=== PATIENT | female | born 1940 | race Hispanic/Latino ===

== ENCOUNTER 2018-07-04 05:46 | Day surgery (SDC) | payer MEDICARE, OTHER ==
[2018-07-02 12:26] LABS: BASOPHILS % (AUTO) 0.5 % (0.0-5.0); EOSINOPHILS % (AUTO) 1.3 % (0.0-8.0); HEMATOCRIT 41.2 % (36-48); LYMPHOCYTES % (AUTO) 28.9 % (21.0-51.0); MEAN CORPUSCULAR HEMOGLOBIN 31.2 pg (27.0-33.0); MEAN CORPUSCULAR HGB CONC 33.7 g/dL (32.0-36.0); MEAN CORPUSCULAR VOLUME 92.6 fL (79-99); NEUTROPHILS % (AUTO) 59.3 % (40.0-77.0); PLATELET COUNT (AUTO) 289 K/uL (130-400); RED BLOOD CELL COUNT(AUTO) 4.45 MIL/uL (4.00-5.50); RED CELL DISTRIBUTION WIDTH 13.8 % (11.0-15.5); WHITE BLOOD COUNT (AUTO) 6.1 K/uL (4.8-10.8)
[2018-07-02 12:31] VITALS: BP 138/71
[2018-07-02 12:42] LABS: CREATININE 1.5 mg/dL (0.5-1.5); POTASSIUM 4.3 mmol/L (3.5-5.1)
[2018-07-02 12:47] LABS: INR 0.97 (0.85-1.15); PARTIAL THROMBOPLASTIN TIME 28.4 SEC (26.3-35.5); PROTHROMBIN TIME 10.2 SEC (9.6-11.6)
[2018-07-04] VITALS (9 sets, daily range): BP systolic 109–126; BP diastolic 56–74
[~2018-07-04] VITALS: Ht 167.6 cm; Wt 79.9 kg
[~2018-07-04 05:46] MED LIST: CALC-190 PO; CEFAZOLIN SODIUM 1 GM VIAL IVP SCH; LISI2.5T2 PO; MEMA10TA20 PO; SODIUM CHLORIDE 0.9% 1000ML 1,000 ML IV SCH
[2018-07-04] MEDS ORDERED: LIDOCAINE HCL 1% MDV 50ML VIAL ONE (07:23)
[2018-07-04] MEDS ORDERED: BUPIVACAINE/PF 0.25% 30ML VIAL IJ ONE (07:25)
[2018-07-04] MEDS ORDERED: CEFAZOLIN SODIUM 1 GM VIAL ONE (07:25)
[2018-07-04] MEDS ORDERED: MEPERIDINE-PF 25 MG/ML SYG ONE ×3 (08:14→08:42)
[2018-07-04] MEDS ORDERED: MIDAZOLAM HCL 1 MG/ML 2ML VIAL ONE ×3 (08:14→08:42)
[2018-07-04] MEDS ORDERED: ACETAMINOPHEN 325 MG TAB PO PRN (09:30)
[2018-07-04] MEDS ORDERED: ACETAMINOPHEN-CODEINE 300/30MG TAB PO PRN (09:30)
== END 2018-07-04 12:57 | disposition home or self-care (01) ==
LOC: DAH 05:46
PROVIDERS: ATTEND Internal Medicine Cardiovascular Disease
DX: Z45.2 Encounter for adjustment and management of vascular access device (principal); I10 Essential (primary) hypertension; I42.9 Cardiomyopathy, unspecified; F03.90 Unspecified dementia, unspecified severity, without behavioral disturbance, psychotic disturbance, mood disturbance, and anxiety; Z98.890 Other specified postprocedural states; Z79.899 Other long term (current) drug therapy; Z79.01 Long term (current) use of anticoagulants
CPT/HCPCS: 33263; 36415; 80048; 85025; 85610; 85730; C1721; J0690; J2175 ×3; J2250 ×3; J3490 ×2; J7030; 99156; 99157